=== PATIENT | male | born 1950 | race Caucasian/White ===

== ENCOUNTER 2017-03-05 08:09 | Outpatient (CLI) | payer OTHER ==
[2017-03-05 08:40] LABS: BASOPHILS % 0.6 (0.0-1.5); EOSINOPHILS % 1.6 % (0.0-6.8); MEAN CORPUSCULAR HEMOGLOBIN 28.2 pg (28.0-34.0); MONOCYTES % 4.3 % (0.0-11.0); NEUTROPHILS # 8.9 # k/uL (1.4-7.7)
--- NOTE | 2017-03-05 10:48 | Diagnostic Imaging Report ---
SIERRA LIRIANO [facility] [id number] [facility] [address] [id number] Report Submission Date: Mar 05, 2017 9:23:04 AM CDT Patient Study Name: SHERON YOUNGBLOOD Date: Mar 05, 2017 8:53:14 AM CDT Modality Type: CR Gender: M Description: CHEST : 54 Institution: [facility] Physician: SIERRA LIRIANO HISTORY: 66-year-old male with shortness of breath for 10 days. COMPARISON: None available. TECHNIQUE: 2 views of the chest were performed. FINDINGS: There is opacification of the left lung apex with mass versus mass- like consolidation measuring at 9.8 cm transverse x 6.5 cm cephalocaudal. The right lung is clear. No pneumothorax or pulmonary edema. The heart is not enlarged. There is mild fullness in the left hilum. IMPRESSION: 9.8 cm left apical soft tissue mass versus mass-like consolidation. This is at least moderately suspicious for Pancoast tumor. Recommend follow-up contrasted CT scan of the chest for better characterization. As there is fullness of the left hilum, this may be due to prominent vasculature or lymphadenopathy. Electronically signed on Mar 05, 2017 9:23:04 AM CDT by: Mani CAMARA
== END 2017-03-05 08:10 ==
LOC: LAB 08:09
PROVIDERS: ATTEND Family Medicine
DX: D72.829 Elevated white blood cell count, unspecified (principal)
CPT/HCPCS: 36415; 71020; 85025; 87040